=== PATIENT | female | born 1970 ===

== ENCOUNTER 2017-02-03 22:02 | Emergency (ER) | payer MEDICAID ==
--- NOTE | 2017-02-03 22:27 | ED PDOC ---
HPI: CCC, URI, Sore Throat Time Seen by Provider: 02/03/17 22:16 Chief Complaint (Nursing): Flu-like Symptoms Chief Complaint (Provider): Bodyaches, dry cough x 1 day History Per: Patient History/Exam Limitations: no limitations Onset/Duration Of Symptoms: Days (1) Current Symptoms Are (Timing): Still Present Location Of Pain: Diffuse Myalgias Sick Contacts (Context): None Associated Symptoms: Fever, Chills, Cough, Myalgias. denies: Sore Throat, Sputum Ear Symptoms: Bilateral: None Additional Complaint(s): Pt was seen earlier today at [facility]. Labs and CXR normal. Pt states she did not take any medications today for symptoms because "no one gave her anything". Past Medical History Reviewed: Historical Data, Nursing Documentation, Vital Signs Vital Signs: Last Vital Signs Temp 100.6 F H 02/03/17 22:08 Pulse 77 02/03/17 22:08 Resp 16 02/03/17 22:08 BP 151/92 H 02/03/17 22:08 Pulse Ox 98 02/03/17 22:08 - Medical History PMH: No Chronic Diseases - Surgical History Surgical History: No Surg Hx - Family History Family History: States: Unknown Family Hx - Living Arrangements Living Arrangements: With Family - Social History Current smoker - smoking cessation education provided: No Alcohol: None Drugs: Denies - Immunization History Hx Tetanus Toxoid Vaccination: No Hx Influenza Vaccination: No Hx Pneumococcal Vaccination: No - Home Medications Home Medications: Ambulatory Orders Medication Instructions Recorded Ibuprofen [Motrin] 400 mg PO Q6 #20 tab 02/03/17 - Allergies Allergies/Adverse Reactions: Allergies Allergy/AdvReac Type Severity Reaction Status Date / Time No Known Allergies Allergy Verified 02/03/17 22:08 Review of Systems ROS Statement: Except As Marked, All Systems Reviewed And Found Negative Constitutional: Positive for: Malaise. Negative for: Fever, Chills Respiratory: Positive for: Cough Physical Exam - Reviewed Nursing Documentation Reviewed: Yes Vital Signs Reviewed: Yes - Physical Exam Appears: Positive for: Well, Non-toxic, No Acute Distress Head Exam: Positive for: ATRAUMATIC, NORMAL INSPECTION, NORMOCEPHALIC Skin: Positive for: Normal Color, Warm, DRY Eye Exam: Positive for: Normal appearance ENT: Positive for: Normal ENT Inspection Neck: Positive for: Normal, Painless ROM Cardiovascular/Chest: Positive for: Regular Rate, Rhythm Respiratory: Positive for: Normal Breath Sounds. Negative for: Accessory Muscle Use, Respiratory Distress Back: Positive for: Normal Inspection Extremity: Positive for: Normal ROM Neurologic/Psych: Positive for: Alert, Oriented - ECG O2 Sat by Pulse Oximetry: 98 Medical Decision Making Medical Decision Making: Motrin given for fever. Disposition - Clinical Impression Clinical Impression: Influenza-like symptoms - Patient ED Disposition Is Patient to be Admitted: No Counseled Patient/Family Regarding: Diagnosis, Need For Followup, Rx Given - Disposition Referrals: [facility] [Outside] Disposition: Routine/Home Disposition Time: 22:27 Condition: GOOD Instructions: Influenza (ED)
[2017-02-03 23:05] VITALS: BP 132/78; PULSE 78; RESP 18; TEMP 99.1; O2SAT 99
== END 2017-02-03 23:12 | disposition home or self-care (01) ==
LOC: H.ER 22:02
DX: J10.1 Influenza due to other identified influenza virus with other respiratory manifestations (principal)